=== PATIENT | male | born 1985 | race African-American/Black ===

== ENCOUNTER 2021-02-04 10:37 | Emergency (ER) | payer MEDICAID ==
[~2021-02-04] VITALS: Ht 193 cm; Wt 100.0 kg
[2021-02-04 12:10] VITALS: BP 164/82
[2021-02-04] MEDS ORDERED: ULTRAM50 M1 PO (12:25)
[2021-02-04] MEDS ORDERED: AMOXICILLIN500 MG PO (12:25)
== END 2021-02-04 12:35 | disposition home or self-care (01) ==
LOC: ED 10:37
DX: K04.7 Periapical abscess without sinus (principal)